=== PATIENT | female | born 1965 | race Caucasian/White ===

== ENCOUNTER 2022-06-09 12:06 | Emergency (ER) | payer SELFPAY | END 2022-06-09 12:55 | disposition left against medical advice (07) | DRG 951 | LOC: ED 12:06 → LWOBS 12:55 → ED 12:59 | DX: Z53.21 Procedure and treatment not carried out due to patient leaving prior to being seen by health care provider (principal) ==

== ENCOUNTER 2022-07-08 08:36 | Emergency (ER) | payer MEDICARE ==
[2022-07-08] VITALS (12 sets, daily range): BP systolic 106–161; BP diastolic 64–102
[2022-07-08 09:43] LABS: BASO% 0.2 % (0-3); EOS% 0.1 % (0-8); HEMATOCRIT 42.9 % (37.0-47.0); HEMOGLOBIN 13.9 g/dl (12.0-16.0); IMMATURE GRANULOCYTES 0.4 % (0.0-5.0); LYMPH% 24.2 % (15-41); MEAN CELL VOLUME 94.1 fL CALC (80.0-100.0); MEAN CORPUSCULAR HGB 30.5 pG CALC (26.0-32.0); MEAN CORPUSCULAR HGB CONC 32.4 g/dL CAL (32.0-36.0); NEUT# 7.46 thou/uL (2.00-7.15); NEUT% 71.1 % (42-76); RED BLOOD COUNT 4.56 mill/uL (4.20-5.60); RED CELL DISTRI WIDTH 13.1 % (11.5-15.5)
[2022-07-08 09:57] LABS: ALBUMIN 4.3 g/dL (3.2-5.0); ALKALINE PHOSPHATASE 105 u/l (38-126); ANION GAP 15 (6-22 (CALC)); BILIRUBIN, TOTAL 0.3 mg/dL (0.02-1.3); BUN 13 mg/dL (7-17); BUN/CREATININE RATIO 18 (12-20 (CALC)); CARBON DIOXIDE 24 mmol/l (22-30); CHLORIDE 102 mmol/l (95-108); CREATININE 0.7 mg/dL (0.5-1.0); GFR FOR AFR.AMER. > 60 ML/MIN (>=60 (CALC)); GFR OTHER RACES > 60 ML/MIN (>=60 (CALC)); POTASSIUM 4.7 mmol/l (3.5-5.1); SGOT/AST 28 u/l (14-36); SODIUM 136 mmol/l (137-146); TOTAL PROTEIN 7.6 g/dL (6.3-8.2)
== END 2022-07-08 11:39 | disposition home or self-care (01) ==
LOC: ED 08:36
PROVIDERS: Family Medicine
DX: E11.65 Type 2 diabetes mellitus with hyperglycemia (principal); F17.200 Nicotine dependence, unspecified, uncomplicated; Z86.16 Personal history of COVID-19

== ENCOUNTER 2022-11-15 07:57 | Emergency (ER) | payer MEDICARE ==
[2022-11-15] VITALS (9 sets, daily range): BP systolic 90–121; BP diastolic 45–69
[~2022-11-15] VITALS: Ht 165.1 cm; Wt 97.0 kg
[2022-11-15] MEDS ORDERED: LEVOTHYROXIN100 MC1 PO (09:45)
[2022-11-15] MEDS ORDERED: LOPRESSOR25 M1 PO (09:46)
[2022-11-15] MEDS ORDERED: ROSUVASTATIN CAL5 MG (09:47)
[2022-11-15] MEDS ORDERED: GLIPIZIDE5 M2 PO (09:48)
[2022-11-15] MEDS ORDERED: MONTELUKAST SOD10 MG PO (09:49)
[2022-11-15] MEDS ORDERED: ALBUTEROL108 MCG/AC (09:50)
[2022-11-15] MEDS ORDERED: ESCITALOPRAM OX20 MG PO (09:50)
[2022-11-15] MEDS ORDERED: CIPROFLOXACN500 MG PO (11:02)
== END 2022-11-15 11:35 | disposition home or self-care (01) ==
LOC: ED 07:57
DX: K57.30 Diverticulosis of large intestine without perforation or abscess without bleeding (principal); S30.0XXA Contusion of lower back and pelvis, initial encounter; E11.9 Type 2 diabetes mellitus without complications; F17.200 Nicotine dependence, unspecified, uncomplicated; W55.12XA Struck by horse, initial encounter; Y93.K9 Activity, other involving animal care; Y92.008 Other place in unspecified non-institutional (private) residence as the place of occurrence of the external cause; Z79.84 Long term (current) use of oral hypoglycemic drugs

== ENCOUNTER 2022-12-21 09:41 | Day surgery (SDC) | payer MEDICARE ==
[~2022-12-21] VITALS: Ht 165.1 cm; Wt 97.5 kg
[~2022-12-21 09:41] MED LIST: ALBUTEROL108 MCG/AC; ANORO ELLIPTA 61 AER IN; CIPROFLOXACN500 MG PO; ESCITALOPRAM OX20 MG PO; GLIPIZIDE5 M2 PO; JANUVIA50 MG PO; LEVOTHYROXIN100 MC1 PO; LOPRESSOR25 M1 PO; MONTELUKAST SOD10 MG PO; ROSUVASTATIN CAL5 MG
[2022-12-21] MEDS ORDERED: LORTAB 5/3255 MG PO (11:11)
[2022-12-21 13:23] VITALS: BP 99/58
== END 2022-12-21 13:37 | disposition home or self-care (01) ==
LOC: ORM 09:41
PROVIDERS: ATTEND Surgery
PROC: 0WQF4ZZ Repair Abdominal Wall, Percutaneous Endoscopic Approach (ICD-10-PCS; principal; 2022-12-21)
DX: K43.2 Incisional hernia without obstruction or gangrene (principal); J44.9 Chronic obstructive pulmonary disease, unspecified; E11.9 Type 2 diabetes mellitus without complications; Z79.84 Long term (current) use of oral hypoglycemic drugs
CPT/HCPCS: J0131

== ENCOUNTER 2023-12-20 11:54 | Emergency (ER) | payer MEDICARE ==
[~2023-12-20] VITALS: Ht 165.1 cm; Wt 90.7 kg
[2023-12-20] VITALS (8 sets, daily range): BP systolic 121–141; BP diastolic 58–91
[~2023-12-20 11:54] MED LIST changes: +LORTAB 5/3255 MG PO
[2023-12-20] MEDS ORDERED: ASPIRIN 81 MG/TAB PO ONE (12:00)
[2023-12-20 12:37] LABS: BASO% 0.6 % (0-3); EOS% 2.4 % (0-8); HEMOGLOBIN 14.4 g/dl (12.0-16.0); IMMATURE GRANULOCYTES 0.1 % (0.0-5.0); LYMPH% 45.5 % (15-41); MEAN CELL VOLUME 92.6 fL CALC (80.0-100.0); MEAN CORPUSCULAR HGB 30.3 pG CALC (26.0-32.0); MEAN CORPUSCULAR HGB CONC 32.7 g/dL CAL (32.0-36.0); MONO% 6.3 % (2-13); NEUT# 3.68 thou/uL (2.00-7.15); NEUT% 45.1 % (42-76); RED BLOOD COUNT 4.75 mill/uL (4.20-5.60); RED CELL DISTRI WIDTH 12.9 % (11.5-15.5)
[2023-12-20 12:53] LABS: ALBUMIN 4.1 g/dL (3.2-5.0); BILIRUBIN, TOTAL 0.4 mg/dL (0.02-1.3); CREATININE 0.8 mg/dL (0.5-1.0); POTASSIUM 4.5 mmol/l (3.5-5.1); TOTAL PROTEIN 7.3 g/dL (6.3-8.2)
[2023-12-20] MEDS ORDERED: ENOXAPARIN SODIUM 80 MG/0.8 ML SYR SC ONE (13:15)
[2023-12-20 13:17] LABS: URINE BILIRUBIN - DIPSTICK Negative (NEGATIVE); URINE BLOOD DIPSTICK Negative (NEGATIVE); URINE GLUCOSE - DIPSTICK Negative (NEGATIVE); URINE KETONE Negative (NEGATIVE); URINE LEUK ESTERASE Trace (NEGATIVE); URINE NITRITE - DIPSTICK Negative (Negative); URINE PROTEIN - DIPSTICK Negative (NEG-TRACE); URINE SPECIFIC GRAVITY 1.015
[2023-12-20 13:23] LABS: URINE COLOR Yellow
[2023-12-20] MEDS ORDERED: SODIUM CHLORIDE 0.9% 500 ML IV ONE (13:25)
[2023-12-20] MEDS ORDERED: NITROGLYCERIN IN D5W 250 ML IV ONE (13:25)
[2023-12-20] MEDS ORDERED: ENOXAPARIN SODIUM 100 MG/ML SYR SC ONE (13:30)
== END 2023-12-20 14:04 | disposition short-term general hospital (02) ==
LOC: ED 11:54
PROVIDERS: Nurse Practitioner
DX: I21.4 Non-ST elevation (NSTEMI) myocardial infarction (principal); I10 Essential (primary) hypertension; I25.10 Atherosclerotic heart disease of native coronary artery without angina pectoris; E78.5 Hyperlipidemia, unspecified; E11.9 Type 2 diabetes mellitus without complications; Z79.84 Long term (current) use of oral hypoglycemic drugs
CPT/HCPCS: J1650

== ENCOUNTER 2023-12-23 12:30 | Emergency (ER) | payer MEDICARE ==
[~2023-12-23] VITALS: Ht 165.1 cm; Wt 91.6 kg
[2023-12-23] VITALS (20 sets, daily range): BP systolic 92–127; BP diastolic 48–72
[2023-12-23] MEDS ORDERED: ONDANSETRON HCl 4 MG/2 ML SDV IV STA (12:58)
[2023-12-23] MEDS ORDERED: ASPIRIN 81 MG/TAB PO ONE ×2 (13:00→15:30)
[2023-12-23 13:02] LABS: URINE BILIRUBIN - DIPSTICK Negative (NEGATIVE); URINE BLOOD DIPSTICK Negative (NEGATIVE); URINE GLUCOSE - DIPSTICK Negative (NEGATIVE); URINE KETONE Negative (NEGATIVE); URINE LEUK ESTERASE Trace (NEGATIVE); URINE NITRITE - DIPSTICK Negative (Negative); URINE PH 5.5 (4.5-8.0); URINE PROTEIN - DIPSTICK Negative (NEG-TRACE); URINE UROBILINOGEN - DIPSTICK >=8.0 E.U./dL (0.2)
[2023-12-23 13:03] LABS: BASO% 0.2 % (0-3); EOS% 1.2 % (0-8); HEMATOCRIT 40.5 % (37.0-47.0); HEMOGLOBIN 13.2 g/dl (12.0-16.0); IMMATURE GRANULOCYTES 0.2 % (0.0-5.0); LYMPH% 31.3 % (15-41); MEAN CORPUSCULAR HGB 30.6 pG CALC (26.0-32.0); MEAN CORPUSCULAR HGB CONC 32.6 g/dL CAL (32.0-36.0); MONO% 9.6 % (2-13); NEUT# 5.07 thou/uL (2.00-7.15); NEUT% 57.5 % (42-76); RED BLOOD COUNT 4.31 mill/uL (4.20-5.60); RED CELL DISTRI WIDTH 12.9 % (11.5-15.5); URINE COLOR Yellow
[2023-12-23 13:31] LABS: ALBUMIN 4.1 g/dL (3.2-5.0); CREATININE 0.7 mg/dL (0.5-1.0)
[2023-12-23 13:42] LABS: BILIRUBIN, TOTAL 0.8 mg/dL (0.02-1.3)
[2023-12-23] MEDS ORDERED: ENOXAPARIN SODIUM 30 MG/0.3 ML INJ IV ONE (15:30)
[2023-12-23] MEDS ORDERED: ENOXAPARIN SODIUM 100 MG/ML SYR SC ONE (15:50)
[2023-12-23] MEDS ORDERED: ONDANSETRON HCl 4 MG/2 ML SDV IV ONE (17:05)
[2023-12-23] MEDS ORDERED: HYDROmorphone HCL 2 MG/AMP IV ONE ×2 (17:05→18:55)
== END 2023-12-23 20:46 | disposition short-term general hospital (02) ==
LOC: ED 12:30
PROVIDERS: Nurse Practitioner
DX: I21.4 Non-ST elevation (NSTEMI) myocardial infarction (principal); E11.9 Type 2 diabetes mellitus without complications; Z79.84 Long term (current) use of oral hypoglycemic drugs; Z95.5 Presence of coronary angioplasty implant and graft
CPT/HCPCS: J1650; Q9967